=== PATIENT | female | born 1975 | race Caucasian/White ===

== ENCOUNTER 2019-10-16 16:43 | Inpatient (IN) ==
[2019-10-16] MEDS ORDERED: NS 1,000 ML IV ONE (20:05)
[2019-10-16 20:42] LABS: BASO# 0.04 X1000 (0.0-0.2); BASO% 0.6 % (0.0-0.8); EOS# 0.27 X1000 (0.0-0.7); EOS% 4.3 % (0.0-10.0); HEMATOCRIT 34.6 % (37.0-47.0); HEMOGLOBIN 11.5 g/dL (12.0-16.0); IMM GRAN# 0.02 X1000 (0.0-0.04); IMM GRAN% 0.3 % (0.0-0.5); LYMPH# 2.88 X1000 (1.2-3.4); LYMPH% 46.3 % (20.5-51.1); MCHC 33.2 g/dL (33-37); MCV 93.3 FL (81-99); MONO# 0.67 X1000 (0.11-0.59); MONO% 10.8 % (1.7-9.3); NEUT# 2.34 X1000 (1.4-6.5); NEUT% 37.7 % (42.2-75.2); PLT 287 X1000 (130-400); RBC 3.71 XMIL (4.2-5.4); RDW 20.6 % (11.5-14.5); WBC 6.22 X1000 (4.8-10.8)
[2019-10-16 20:50] LABS: INR 1.02; PROTIME 13.5 Seconds (11.0-16.0)
[2019-10-16 20:51] LABS: PTT 35.4 Seconds (22.3-41.8)
[2019-10-16 21:15] LABS: AGAP 10; ALB/GLOB RATIO 1.1; ALBUMIN 3.9 g/dL (3.5-5.0); ALKALINE PHOSPHATASE 293 U/L (32-104); AMYLASE 62 U/L (20-200); BUN 11 mg/dL (8-22); CHLORIDE 102 mmol/L (98-107); COSMO 274; CREATININE 0.5 mg/dL (0.5-0.9); ESTIMATED GFR > 60; GLUCOSE 80 mg/dL (70-104); LIPASE 44 U/L (13-60); POTASSIUM 3.8 mmol/L (3.5-5.1); SODIUM 138 mmol/L (136-145); TCO2 26 mmol/L (25-35); TOTAL BILIRUBIN 14.16 mg/dL (0.20-1.00); TOTAL PROTEIN 7.4 g/dL (6.3-8.3)
[2019-10-16 21:33] LABS: GOT 1464 U/L (10-30); GPT 1426 U/L (10-36)
[2019-10-16 21:48] LABS: URINE SOURCE CLEAN CATCH
--- NOTE | 2019-10-16 21:58 | Diag Imaging Result Doc PS360 ---
EXAM: CT ABD/PELVIS W/IV CONT ONLY - 10/16/2019 HISTORY: abd pain, RUQ, jaundice TECHNIQUE: CT abdomen/pelvis with intravenous contrast COMPARISON: None. FINDINGS: The visualized lung bases appear clear except for mild dependent atelectasis. The gallbladder is moderately distended. There are multiple calcified gallstones in the gallbladder. The gallbladder kaur appear mildly thickened. There is a small amount of pericholecystic fluid. There are no other gross pericholecystic inflammatory changes identified. There is mild periportal edema. There is no focal liver lesion identified. There are no substantial abnormalities of the spleen or adrenal glands identified. There is no pancreatic mass or inflammation identified. The bilateral kidneys enhance homogeneously. There are nonspecific small retroperitoneal and mesenteric lymph nodes. There is no evidence of bowel obstruction. The appendix is unremarkable. There is a large amount retained fecal debris in the colon suggesting constipation. There is no substantial bowel wall thickening identified. There is no free air or abscess identified. IMPRESSION: Moderately distended gallbladder. Multiple calcified gallstones in gallbladder. Mildly thickened gallbladder kaur. Small amount of pericholecystic fluid. Cholecystitis is not excluded. Mild periportal edema. This is of uncertain significance, but can be seen with hepatitis. There is no evidence of focal liver lesion. Evidence of constipation. This exam was performed using automated exposure control, adjustment of mA or kV according to patient size, and/or use of iterative reconstruction technique. Electronically signed by Josef Baeza 10/16/2019 9:56 PM
[2019-10-16 22:02] LABS: BILIRUBIN URINE SMALL (NEGATIVE); BLOOD URINE NEGATIVE (NEGATIVE); COLOR YELLOW; GLUCOSE URINE NEGATIVE (NEGATIVE); KETONE URINE NEGATIVE (NEGATIVE); LEUKOCYTES URINE NEGATIVE (NEGATIVE); NITRITE URINE NEGATIVE (NEGATIVE); PH URINE 6.5; PROTEIN URINE NEGATIVE (NEGATIVE); SP GRAVITY URINE 1.008; TURBIDITY URINE HAZY (CLEAR); UROBILINOGEN URINE 2 mg/dL (NORMAL)
[2019-10-16 22:05] LABS: URINE CASTS NONE SEEN; URINE CRYSTALS NONE SEEN; URINE SMALL ROUND CELLS NONE SEEN; URINE YEAST NONE SEEN
[2019-10-16 22:06] LABS: UR EPITHELIAL CELLS <10 /HPF (<10); URINE BACTERIA NEGATIVE /HPF; URINE RBC <10 /HPF (<10); URINE WBC <10 /HPF (<10)
[2019-10-16] MEDS ORDERED: ZOSYN 3.375 GM in NS 50 ML IV ONE (23:01)
--- NOTE | 2019-10-16 23:05 | PROVIDER DOCUMENTATION ---
This chart was entered by Nuvia Doe Scribe, acting as scribe for Abhi Real MD. HPI-Abdominal Pain/GI Problem - General Chief Complaint: Abdominal Pain Stated Complaint: "JAUNDICE" Time Seen by Provider: 10/16/19 19:59 Source: patient, family Allergies/Adverse Reactions: Patient Allergies Allergy/AdvReac Type Severity Reaction Status Date / Time codeine AdvReac NAUSEA Verified 09/16/19 15:27 Home Medications: Home Medication List Medication Instructions Recorded Confirmed Last Taken Type Levothyroxine [Synthroid] 200 microgm PO DAILY 09/16/19 10/16/19 Unknown History - History of Present Illness-ABD Nature of Presenting Problems: 43 yowf presents to the ed with c/o jaundice and abd pain in RUQ. pt sts was seen on 09/16/2019 and was dx with gallstones. pt did not follow up after last visit to ed. Abdominal Pain Onset Location: reports: RUQ Pain Radiation: reports: back Quality of Pain: reports: aching Severity in ED: reports: moderate Onset/Duration: reports: other (09/16/2019) Timing: reports: still present, intermittent, getting worse Activities at Onset: reports: light activity Modifying Factors: improves with: nothing. worse with: palpation Associated Symptoms: reports: back/neck pain, genitourinary problems (dark urine), loss of appetite, other (jaundice). denies: chest pain, dizziness, fever/chills, shortness of breath, vomiting Last BM: last night Dark Stools Present?: reports: none noticed Rectal Bleeding: reports: none # of Diarrhea Episodes: 0 Rectal Pain: reports: none # of Vomiting Episodes: 0 Emesis Description: reports: none Bruising or Bleeding Gums?: No Similar Symptoms Previously?: Yes (dx gallstones) Recently seen or treated by another doctor?: Yes (seen in ed 09/16/2019) Review of Systems - Adult - REVIEW OF SYSTEMS - ADULT Constitutional: denies: chills, fever Eyes: reports: no symptoms reported Ears, Nose, Mouth & Throat: reports: no symptoms reported Cardiovascular: denies: chest pain, edema, palpitations Respiratory: denies: shortness of breath, wheezing Gastrointestinal: reports: see HPI, abdominal pain, poor appetite. denies: diarrhea, nausea, vomiting Genitourinary: reports: see HPI, other (dark urine) Musculoskeletal: reports: see HPI, back pain Integumentary: reports: no symptoms reported Neurological: reports: no symptoms reported Psychiatric: reports: no symptoms reported Endocrine: reports: see HPI, change in skin pigment Hematologic/Lymphatic: reports: no symptoms reported Allergic/Immunologic: reports: no symptoms reported All Other Systems: Reviewed and Negative Past History - Adult - PAST MEDICAL HISTORY-ADULT Review of Records: reports: Old Records Reviewed, Nursing Assessment Review, Medications Reviewed, Social history reviewed & non-contributory. Major Childhood Illnesses: reports: denies history Cardiovascular: reports: denies history Respiratory: reports: denies history Gastrointestinal: reports: denies history Obstetrical/Gynecological: reports: denies history Genitourinary: reports: denies history Musculoskeletal: reports: denies history Neurological: reports: denies history Psychiatric: reports: denies history Endocrine/Immune: reports: thyroid disorder Other Conditions: reports: denies history - PRIOR SURGERIES/PROCEDURES Surgical/Procedure History: reports: hysterectomy - IMMUNIZATION STATUS Childhood Immunizations: See Nurse Assessment Flu Vaccine: See Nurse Assessment - FAMILY HISTORY Family History: reviewed, not pertinent - SOCIAL HISTORY Smoking: cigarettes, greater than 1 pack/day Provider spent 3-5 mins advising pt. on dangers of tobacco.: Discussed manners to quit use, and f/u contacts for add'l counseling. Substance Use: denies Alcohol Use Frequency: never Living Situation: family Physical Exam-General - PHYSICAL EXAM-ADULT Initial Vital Signs Reviewed: Yes - CONSTITUTIONAL General Appearance: appears well, alert, mild distress - EYES Eyes: PERRL/EOMI, scleral icterus - HEAD, EARS, NOSE, MOUTH & THROAT HENMT: moist mucous membranes - NECK Neck: non-tender, full range of motion, supple - RESPIRATORY Respiratory: lungs clear, normal breath sounds - CARDIOVASCULAR Cardiovascular: normal peripheral pulses, regular rate, rhythm - CHEST (BREASTS) Chest/Breast: deferred - GASTROINTESTINAL (ABDOMEN) Abdominal Exam: normal bowel sounds, soft, tenderness (RUQ) - GENITOURINARY Female Genitalia/Pelvic Exam: deferred Rectal Exam: deferred Hemoccult Exam: deferred - MUSCULOSKELETAL Back Exam: no CVA tenderness, no vertebral tenderness Extremity: normal range of motion, non-tender, normal gait, normal capillary refill - SKIN Integumentary: normal turgor, warm/dry, jaundice - NEUROLOGIC Neurologic: grossly normal - PSYCHIATRIC Psych/Mental Status: normal mood/affect, normal thought content, normal thought process, oriented x 3 Progress - PLAN OF CARE/RESULTS Progress/Plan/Lab Results: Vital Signs - 8 hr 10/16/19 16:58 Temperature 98.0 F Pulse Rate 81 Respiratory Rate 18 Blood Pressure 119/76 O2 Sat by Pulse Oximetry 99 Orders Category Date Time Status Saline Loc DIRECTED Care 10/16/19 17:23 Active NPO Diet 10/16/19 17:23 Active AMMONIA [CHEM] Stat Lab 10/16/19 17:24 Uncollected AMYLASE [CHEM] Stat Lab 10/16/19 17:23 Uncollected CBC WITH ELECTRONIC DIFF [HEME] Stat Lab 10/16/19 17:23 Uncollected COMPREHENSIVE METABOLIC PANEL [CHEM] Stat Lab 10/16/19 17:23 Uncollected LIPASE [CHEM] Stat Lab 10/16/19 17:23 Uncollected PROTIME WITH INR [COAG] Stat Lab 10/16/19 17:24 Uncollected PTT [COAG] Stat Lab 10/16/19 17:24 Uncollected URINALYSIS W/POSS RFLX CULT [URINALYSIS] Stat Lab 10/16/19 17:23 Uncollected Result Diagrams: 10/16/19 20:10 10/16/19 20:10 - CT/MRI 1 CT Study: Abdomen, Pelvis Impression: See EMR Report (EXAM: CT ABD/PELVIS W/IV CONT ONLY - 10/16/2019 HISTORY: abd pain, RUQ, jaundice TECHNIQUE: CT abdomen/pelvis with intravenous contrast COMPARISON: None. FINDINGS: The visualized lung bases appear clear except for mild dependent atelectasis. The gallbladder is moderately distended. There are multiple calcified gallstones in the gallbladder. The gallbladder kaur appear mildly thickened. There is a small amount of pericholecystic fluid. There are no other gross pericholecystic inflammatory changes identified. There is mild periportal edema. There is no focal liver lesion identified. There are no substantial abnormalities of the spleen or adrenal glands identified. There is no pancreatic mass or inflammation identified. The bilateral kidneys enhance homogeneously. There are nonspecific small retroperitoneal and mesenteric lymph nodes. There is no evidence of bowel obstruction. The appendix is unremarkable. There is a large amount retained fecal debris in the colon suggesting constipation. There is no substantial bowel wall thickening identified. There is no free air or abscess identified. IMPRESSION: Moderately distended gallbladder. Multiple calcified gallstones in gallbladder. Mildly thickened gallbladder kaur. Small amount of pericholecystic fluid. Cholecystitis is not excluded. Mild periportal edema. This is of uncertain significance, but can be seen with hepatitis. There is no evidence of focal liver lesion. Evidence of constipation. This exam was performed using automated exposure control, adjustment of mA or kV according to patient size, and/or use of iterative reconstruction technique. Electronically signed by Josef Baeza 10/16/2019 9:56 PM 10/16/192155 Interpreting Physician: Josef Baeza MD Dictated Date/Time: 10/16/192147 cc: Abhi Real MD; None,PCP) - CONSULTS/PCP/HOSPITALIST Notification #1 *Consult/PCP/Hospitalist*: dr morris sx Time Discussed: 22:54 (start abx) Reason/Comments: will do sx #2 Consult: hospitalist dr xiogn Time Discussed: 23:00 Consult Disposition: Will see in ED, Admit Departure - Departure Date of Disposition Decision: 10/16/19 Time of Disposition Decision: 23:02 DIAGNOSIS: Jaundice, Cholelithiasis, Cholecystitis, Elevated LFTs Disposition: ADMITTED INPATIENT 09 Certified Medical Emergency: Emergent Condition: Fair Referrals and Follow-Ups: None,PCP [Primary Care Provider] - Discharge Education: Steps to Quit Smoking, [id number] - Critical Care Note This patient required my direct & personal management of CC.: No Attestation - Physician/ JAMES Attestation Patient care was provided by Advanced Practice Provider:: No The physician spent face to face time with patient:: Yes Advanced Practice Provider documentation review:: Supervising physician onsite and consulted in the evaluation and care of this patient. The physician did have a face to face encounter with the patient. This chart was documented by the indicated scribe, (Nuvia Doe Scribe) and accurately reflects the services I performed and decisions made by me, Abhi Real MD, as attested by the provider's signature.
[2019-10-17] MEDS ORDERED: ZOFRAN IV PRN (04:10)
[2019-10-17] MEDS ORDERED: MORPHINE IV PRN (04:17)
[2019-10-17] MEDS ORDERED: TYLENOL PR PRN (04:17)
[2019-10-17 04:56] LABS: BASO# 0.03 X1000 (0.0-0.2); BASO% 0.6 % (0.0-0.8); EOS# 0.24 X1000 (0.0-0.7); EOS% 5.1 % (0.0-10.0); HEMATOCRIT 31.6 % (37.0-47.0); HEMOGLOBIN 10.6 g/dL (12.0-16.0); IMM GRAN# 0.02 X1000 (0.0-0.04); IMM GRAN% 0.4 % (0.0-0.5); LYMPH# 1.93 X1000 (1.2-3.4); LYMPH% 41.2 % (20.5-51.1); MCH 31.4 PG (27-31); MCHC 33.5 g/dL (33-37); MCV 93.5 FL (81-99); MONO# 0.49 X1000 (0.11-0.59); MONO% 10.4 % (1.7-9.3); MPV 9.8 FL (7.4-10.4); NEUT# 1.98 X1000 (1.4-6.5); NEUT% 42.3 % (42.2-75.2); PLT 272 X1000 (130-400); RBC 3.38 XMIL (4.2-5.4); WBC 4.69 X1000 (4.8-10.8)
[2019-10-17 05:29] LABS: AGAP 8; ALB/GLOB RATIO 0.9; ALBUMIN 3.1 g/dL (3.5-5.0); ALKALINE PHOSPHATASE 262 U/L (32-104); BUN 8 mg/dL (8-22); CALCIUM 8.2 mg/dL (8.8-10.2); CHLORIDE 106 mmol/L (98-107); COSMO 273; CREATININE 0.5 mg/dL (0.5-0.9); ESTIMATED GFR > 60; GLUCOSE 107 mg/dL (70-104); GOT 1256 U/L (10-30); GPT 1166 U/L (10-36); POTASSIUM 3.7 mmol/L (3.5-5.1); SODIUM 137 mmol/L (136-145); TCO2 23 mmol/L (25-35); TOTAL BILIRUBIN 12.31 mg/dL (0.20-1.00); TOTAL PROTEIN 6.6 g/dL (6.3-8.3)
[2019-10-17] MEDS: PROTONIX IV SCH (05:41)
[2019-10-17] MEDS: ZOSYN 3.375 GM in NS 50 ML IV SCH ×5 (05:41→22:18)
[2019-10-17] MEDS: NS 1,000 ML IV SCH ×2 (05:42→17:31)
[2019-10-17] MEDS: NICODERM PATCH TD PRN (06:57)
--- NOTE | 2019-10-17 07:27 | GENERAL SURGERY CONSULTATION ---
DATE: 10/17/2019 HISTORY OF PRESENT ILLNESS: Ms. Bains comes in today with a 2-week history of right upper quadrant pain and jaundice. Her LFTs are elevated. Her CT scan shows multiple calcified gallstones within the gallbladder. She is not certain that she has had any fever at home. PAST MEDICAL HISTORY: Pertinent for a hysterectomy. MEDICATIONS AT HOME: Synthroid 200 mcg daily. This is for a history of Bebeto's disease. ALLERGIES: Codeine. SOCIAL HISTORY: She is engaged to be . She does smoke a pack per day. She denies current illicit drug use. She says she has not used illicit drugs for many years. She denies alcohol use. FAMILY HISTORY: Noncontributory. REVIEW OF SYSTEMS: Negative in all 10 subsystems except as noted above in the history of present illness. She specifically denies any known fever, nausea or vomiting. Does report some epigastric pain, however. PHYSICAL EXAMINATION: Vital Signs: She is afebrile, heart rate 87, blood pressure 129/67. HEENT: She is obviously jaundiced. Neck: No cervical adenopathy. Lungs: Bilateral breath sounds are present. Heart: Regular rate and rhythm. Abdomen: Soft. She is mildly tender to the right upper quadrant. Extremities: Pedal pulses are present. No peripheral edema. Neurologic: She is awake, alert, oriented. LABORATORY DATA: White count is normal at 4700. Total bilirubin is 12.3, AST 1256, ALT 1166, alkaline phosphatase 262. There is a bilirubin in her urine. Urine is nitrite negative. ASSESSMENT: Cholelithiasis with jaundice, possible choledocholithiasis. PLAN: The plan will be also to check a hepatitis profile. We will ultimately perform a cholecystectomy on her while she is hospitalized, and I have discussed that with her. cc: Malik Cox MD
--- NOTE | 2019-10-17 11:06 | HISTORY AND PHYSICAL ---
PRIMARY CARE PROVIDER: The patient does not have a primary care provider. CHIEF COMPLAINT: Abdominal pain. HISTORY OF PRESENT ILLNESS: Ms. Bains is a 43-year-old female who states that for the past month that she has had intermittent right upper quadrant abdominal pain, as well as a baseline slight jaundice noted, though states this has gotten worse and better at times over the past month. She states since about 2 weeks ago it has progressively gotten worse. She reports some right upper quadrant pain that is intermittent though has been getting worse recently. She reports it is achy in nature. She reports some decreased appetite, though denies any nausea, vomiting, or diarrhea. She denies any fever, body aches, or chills. She has reported that she has been having some dark urine, though she denies any headache, dizziness, chest pain, shortness of breath or cough. She denies any dysuria or urine urinary frequency. She denies any pain, numbness, tingling or swelling in extremities. The patient states that she was seen in the emergency department on 09/16/2019 and was diagnosed with gallstones, though was not instructed to follow up with anybody. On evaluation in the ER, the patient was noted to have jaundice present. Liver function tests were quite elevated. I did perform a CT of the abdomen and pelvis with IV contrast only which did show a moderately distended gallbladder with multiple gallstones in the gallbladder noted. There was a small amount of pericholecystic fluid. Cholecystitis could not be excluded. Given this, the patient will be admitted for further treatment and evaluation. REVIEW OF SYSTEMS: A 14-point review of systems was conducted with the patient. All were negative except for pertinent positives mentioned in the above HPI. PAST MEDICAL HISTORY: Hypothyroidism. The patient reports a history of Bebeto's. She does take Synthroid daily. PAST SURGICAL HISTORY: Hysterectomy. SOCIAL HISTORY: The patient is a current 3-[id number]-[id number]-day smoker. She has done so since she was 15 years old. She denied any alcohol or illicit drug use. FAMILY HISTORY: Positive for her father having a history of hypertension, sleep apnea, atrial fibrillation. Her mother had a history of heart disease, as well as Bebeto's and hypertension. ALLERGIES: The patient has allergies to codeine. HOME MEDICATION: Synthroid 200 mcg p.o. daily. DIAGNOSTIC DATA: White blood cell count is 6220, hemoglobin 11.5, hematocrit 34.6, platelet count is 287,000. PT 13.5, INR 1.02, PTT is 35.4. Sodium 138, potassium 3.8, chloride 102, serum bicarbonate is 26, BUN 11, creatinine 0.5 with a GFR greater than 60, glucose 274, calcium 9, total bilirubin is 14.16, AST 1464, ALT 1426, alkaline phosphatase 293. Amylase 62, lipase 44. Urinalysis was obtained via clean catch and was positive for small amount of bilirubin. It was negative for protein, glucose, ketones, blood, nitrites, leukocytes, white blood cells, or bacteria. CT abdomen and pelvis with IV contrast only did show moderately distended gallbladder. Multiple calcified gallstones in the gallbladder. Mildly thickened gallbladder kaur. Small amount of pericholecystic fluid. Cholecystitis could not be excluded. There was also mild periportal edema. This is of uncertain significance, but can be seen in hepatitis. There is no evidence of focal liver lesion. There is also evidence of constipation noted. PHYSICAL EXAMINATION: VITAL SIGNS: Temperature 97.7 degrees, heart rate 83, respirations 16, blood pressure is 118/65 with a MAP of 75, oxygen saturation is 95% on room air. GENERAL: Ms. Bains is a pleasant 43-year-old female. She was resting in the ER stretcher. She was in no acute distress. She was awake, alert, and answered questions appropriately. HEENT: Head is atraumatic, normocephalic. Pupils are equal, round, reactive to light, were 3 mm bilaterally and brisk. The patient does have jaundice noted bilateral sclera. Oral mucosa is moist. Oropharynx is clear. NECK: Supple, trachea midline. CARDIOVASCULAR: Patient has S1 and S2 present. No murmurs, gallops, or rubs appreciated with a regular rate and rhythm. PULMONARY: The patient has symmetrical chest expansion bilaterally. Lung sounds clear to auscultation in bilateral full arriola. ABDOMEN: Soft, nondistended. The patient was tender upon palpation in her right upper quadrant and epigastric area. Bowel sounds were present in all 4 quadrants and were normoactive. EXTREMITIES: No cyanosis or edema noted. Pulse, motor, and sensory were intact in all extremities. Radial and pedal pulses were 2+ bilaterally. INTEGUMENTARY: The patient's skin color does have jaundice noted, though it is dry and intact. NEUROLOGICAL: The patient is alert oriented to person, place, time, and situation. There were no focal neurological deficits noted. She is able move all extremities. ASSESSMENT: 1. Cholelithiasis. 2. Possible cholecystitis. 3. Transaminitis. 4. Bebeto's thyroid disorder. PLAN: The patient has been placed on the surgical floor with telemetry. She will have vital signs every 8 hours. We will do strict intake and output. She will be n.p.o. at this time until she is evaluated by surgery. We have placed orders for a hepatitis profile and an abdominal ultrasound. We will provide IV hydration with normal saline at 100 mL/hour. We have placed antibiotics. We have placed IV antibiotic coverage with Zosyn 3.375 grams IV every 6 hours. We will repeat a CBC and CMP in the morning. We have provided p.r.n. IV pain medication and antiemetics. We will continue her Synthroid. We have placed orders for a TSH to be drawn in the morning as well. Deep venous thrombosis prophylaxis will be provided with sequential compression devices. Further orders and recommendations pending hospital course, diagnostic studies, and physician evaluation. Dictated by FABI Valle for Gentry Moore MD cc: Gentry Moore MD
--- NOTE | 2019-10-17 11:37 | Diag Imaging Result Doc PS360 ---
EXAM: US ABDOMEN-COMPLETE 10/17/2019 HISTORY: Cholecystitis,Cholelithiasis,Transaminitis TECHNIQUE: Abdominal ultrasound COMMENT: The visualized portions of the aorta and inferior vena cava are within normal limits. The head and body of the pancreas are within normal limits detail is obscured. The liver is unremarkable. There is antegrade flow in the portal vein. There are multiple stones dependently in the gallbladder. The gallbladder wall is thickened and there is no evidence of para cholecystic fluid. The common bile duct is distended to almost 9 mm. The spleen is not enlarged. The kidneys are without evidence of hydronephrosis or mass. There is a tiny amount of free fluid in Morison's pouch. The patient was evidently somewhat sedated with pain medication and the presence or absence of a Godinez sign cannot be determined. IMPRESSION: Cholelithiasis and minimal ascites. The possibility of cholecystitis and choledocholithiasis cannot be excluded. Electronically signed by Damian Givens 10/17/2019 11:34 AM
[2019-10-17 14:07] LABS: HEPATITIS PROFILE ACUTE SEE COMMENTS
[2019-10-17] MEDS: SYNTHROID PO SCH (16:18)
--- NOTE | 2019-10-17 17:58 | PROGRESS NOTE ---
DATE: 10/17/2019 Ms. Bains was admitted early this morning. She did not have a primary care physician who was having abdominal pain and some jaundice. A 43-year-old female states that for the past month she has had intermittent right upper quadrant abdominal pain as well as baseline slight jaundice noted and gotten worse and better over times in the past month. She since about 2 weeks ago, progressively got worse. She reports she had some right upper quadrant pain, intermittent. It has been getting worse. She reports achy in nature and decreased appetite but denies any nausea, vomiting, or diarrhea. Denies any fever, body aches, chills. She had reported that she had been having some dark urine, though she denies any headache, dizziness, chest pain, shortness of breath. CT of the abdomen and pelvis with IV contrast did show a moderately distended gallbladder with multiple gallstones, small amount of pericholecystic fluid. Cholecystitis could not be excluded. So, admitted with cholelithiasis, possible cholecystitis and transaminitis. She has a history of passive Bebeto's thyroiditis and she is on thyroid supplement. REVIEW OF LABS: Her lab white count 6220, hematocrit 34, platelet count 287,000. Sodium 138, potassium 3.8, chloride 102, BUN 11, creatinine 0.5 blood sugar 80, calcium was 9.0. AST was 1164, ALT 1426, alkaline phos was 293 and total bilirubin was 4.16. She denies alcohol, but she does have a history of drug use over 20 years ago, she said. Cholelithiasis with jaundice, possible choledocholithiasis. Checking a hepatitis profile. CURRENT ORDERS: She is on Synthroid 200 mcg p.o. daily, nicotine patch 21 mg daily, normal saline 100 mL an hour, Protonix 40 mg IV q.24 hours, Zosyn 3.375 g IV q.6 h. cc: Josué Ratliff MD
[2019-10-18] MEDS: SODIUM CHLORIDE 0.9% INJ SCH (04:28)
[2019-10-18] MEDS: ZOSYN 3.375 GM in NS 50 ML IV SCH ×3 (04:28→20:18)
[2019-10-18] MEDS: PROTONIX IV SCH (04:28)
[2019-10-18] MEDS ORDERED: ZEMURON ONE (06:20)
[2019-10-18] MEDS ORDERED: ROBINUL ONE ×2 (06:20→09:18)
[2019-10-18] MEDS ORDERED: XYLOCAINE-MPF 2% ONE (06:20)
[2019-10-18] MEDS ORDERED: QUELICIN (DOSE) ONE (06:20)
[2019-10-18] MEDS ORDERED: FENTANYL ONE (06:22)
[2019-10-18] MEDS ORDERED: DIPRIVAN 1% ONE (06:22)
[2019-10-18] MEDS ORDERED: VERSED ONE (06:22)
[2019-10-18 08:08] LABS: ALB/GLOB RATIO 0.9; TOTAL BILIRUBIN 14.33 mg/dL (0.20-1.00); TOTAL PROTEIN 6.2 g/dL (6.3-8.3)
--- NOTE | 2019-10-18 08:08 | EKG Report ---
Test Performed on : 10/18/2019 07:46:58 AM Test Reason : CP Blood Pressure : / mmHG Vent. Rate : 082 BPM Atrial Rate : 082 BPM P-R Int : 142 ms QRS Dur : 074 ms QT Int : 396 ms P-R-T Axes : 053 008 029 degrees QTc Int : 462 ms Sinus rhythm. with premature atrial complexes. Otherwise normal ECG No previous ECGs available Confirmed by Donald Estrada MD ([id number]) on 10/20/2019 12:34:34 PM
[2019-10-18] MEDS ORDERED: MARCAINE 0.25% PF/EPI 1:200,000 ONE (08:52)
[2019-10-18] MEDS ORDERED: LR 1,000 ML ONE (08:52)
[2019-10-18] MEDS ORDERED: SODIUM CHLORIDE 0.9% ONE (08:52)
[2019-10-18] MEDS ORDERED: NEOSTIGMINE ONE ×2 (09:09→09:21)
[2019-10-18] MEDS ORDERED: ZOFRAN ONE (09:10)
[2019-10-18] MEDS ORDERED: DECADRON ONE (09:10)
--- NOTE | 2019-10-18 09:53 | Diag Imaging Result Doc PS360 ---
OPERATIVE CHOLANGIOGRAM - 10/18/2019 INDICATION: GALLBLADDER DX TECHNIQUE: The exam was performed by the patient's surgeon. Total fluoroscopy time was 12 seconds. Three images were obtained. COMPARISON: Ultrasound from 10/17/2019 FINDINGS: Contrast was infused into the cystic duct. This outlines a normal common bile duct. There is good passage of contrast into the duodenum. No strictures or filling defects. IMPRESSION: No complication. Electronically signed by Pop Novak 10/18/2019 9:51 AM
--- NOTE | 2019-10-18 10:44 | OPERATIVE NOTE ---
PROCEDURE DATE: 10/18/2019 PROCEDURE: Laparoscopic cholecystectomy with operative cholangiogram. SURGEON: Malik Cox MD WOLF HUNTER: Kevyn Adams MD, 3rd year surgery resident, [facility]. PREOPERATIVE DIAGNOSIS: Acute and chronic cholecystitis, possible choledocholithiasis. POSTOPERATIVE DIAGNOSIS: Acute and chronic calculous cholecystitis. FINDINGS: The cholangiogram revealed a normal size common duct free flow in the duodenum. No intraluminal filling defects were seen. The gallbladder wall was yellow and swollen. DESCRIPTION OF PROCEDURE: Satisfactory general endotracheal anesthesia was achieved. The abdomen was prepped and draped in a sterile fashion. We anesthetized the skin below the umbilicus in a curvilinear fashion where the old scar was. We incised the skin and carried our incision down to the fascia. We scored the fascia vertically and used an Optiview trocar number 11 to enter the abdominal cavity. Under direct visualization, we used a 5 trocar midclavicular line, 5 trocar near the anterior axillary line, and the 11 mm trocar in the midepigastrium. We placed the camera in the epigastric trocar site, took some adhesions down from the back of the anterior abdominal wall so that there would free visualization from the umbilicus up to the epigastrium. We then replaced the camera in the umbilical trocar site. We placed the patient in the appropriate position with the head up and turned to the left. The gallbladder wall was thickened. We grasped the fundus, reflected it cephalad. We then began dissection of the omental adhesions off the infundibulum, dissected the areolar tissue off the infundibulum, and then dissected the triangle of Calot. We obtained a critical view. The cystic artery was clipped proximally x2, distally x1, and divided. We then clipped the cystic duct near the junction of the gallbladder. We incised the cystic duct and introduced a taut catheter and shot a cholangiogram. The findings above were noted. We removed the cholangiogram catheter. We then clipped the cystic duct on the opposite side of the cystic ductotomy x2 and then transected it. We used a cautery spatula to then dissect the gallbladder away from the liver. After complete separation of the gallbladder from the liver, we changed videolaparoscope to the mid epigastric trocar site. We introduced the Endo Catch, placed the gallbladder within the bag and delivered out of the abdominal cavity. We had to enlarge the fascial incision at the umbilicus enough to deliver the gallbladder because of its enlarged nature. We looked back. Hemostasis was satisfactory. We aspirated what fluid had collected. We then decompressed the abdominal cavity and removed our trocars. We closed the fascia at the umbilicus with 2-0 Polysorb fascial stitches x3. We then closed the fascia at the epigastrium with a 2-0 Polysorb fascial stitch x1. The skin was closed at each incision with 4-0 Polysorb subcuticular stitches. Sterile OpSites were applied. She tolerated it well and was sent to the recovery room in satisfactory condition. cc: Malik Cox MD
[2019-10-18] MEDS: DILAUDID ONE ×3 (10:54→20:18)
[2019-10-18] MEDS ORDERED: NORCO-10 PO PRN ×2 (11:38→20:07)
[2019-10-18] MEDS: SYNTHROID PO SCH (13:34)
[2019-10-18] MEDS: NICODERM PATCH TD PRN (13:34)
--- NOTE | 2019-10-18 13:54 | PROGRESS NOTE ---
DATE: 10/18/2019 SUBJECTIVE: Ms. Bains is feeling a little better. She is scheduled for surgery this morning. OBJECTIVE: Vital Signs: Temperature 97.2 degrees. Remains afebrile. Pulse 95, respirations 17, blood pressure 110/53. HEENT: Pupils are equal and round. Lungs: Clear in all lung arriola. Cardiovascular: Regular rhythm and rate without murmur or S3. Abdomen: Soft. Skin: Warm and dry. Urine output was 2800 mL. ASSESSMENT AND PLAN: 1. Laparoscopic cholecystectomy for cholecystitis, possible choledocholithiasis. 2. Elevated transaminases. The hepatitis profile, hepatitis A antibody was reactive, but everything else., Hepatitis B surface and core, hepatitis C were nonreactive. REVIEW OF CURRENT ORDERS: 1. Synthroid 200 mcg daily. 2. Nicotine patch 21 mg q.24 hours. 3. Protonix 40 mg IV q.24 hours. 4. Zosyn 3.375 g IV q.6 hours. We will check liver enzymes again in the morning and check CBC. cc: Josué Ratliff MD
[2019-10-18] MEDS ORDERED: MORPHINE IV PRN (20:04)
[2019-10-18] MEDS: PERIDEX MT SCH (20:18)
[2019-10-19] MEDS: ZOSYN 3.375 GM in NS 50 ML IV SCH ×2 (03:21→08:45)
[2019-10-19] MEDS: SODIUM CHLORIDE 0.9% INJ SCH (04:30)
[2019-10-19] MEDS: PROTONIX IV SCH (04:31)
[2019-10-19] MEDS: NS 1,000 ML IV SCH (06:06)
[2019-10-19] MEDS: PERIDEX MT SCH (08:45)
[2019-10-19] MEDS: SYNTHROID PO SCH (08:45)
[2019-10-19] MEDS ORDERED: NORCO-5 PO PRN (08:52)
[2019-10-19] MEDS ORDERED: MILK OF MAGNESIA PO SCH (09:00)
[2019-10-19] MEDS: NICODERM PATCH TD PRN (09:20)
[2019-10-19 09:45] LABS: BASO# 0.01 X1000 (0.0-0.2); BASO% 0.1 % (0.0-0.8); EOS# 0.07 X1000 (0.0-0.7); EOS% 0.7 % (0.0-10.0); HEMATOCRIT 32.7 % (37.0-47.0); HEMOGLOBIN 10.7 g/dL (12.0-16.0); IMM GRAN# 0.02 X1000 (0.0-0.04); IMM GRAN% 0.2 % (0.0-0.5); LYMPH# 1.89 X1000 (1.2-3.4); LYMPH% 19.2 % (20.5-51.1); MCH 31.2 PG (27-31); MCHC 32.7 g/dL (33-37); MCV 95.3 FL (81-99); MONO# 0.65 X1000 (0.11-0.59); MONO% 6.6 % (1.7-9.3); MPV 10.3 FL (7.4-10.4); NEUT# 7.21 X1000 (1.4-6.5); NEUT% 73.2 % (42.2-75.2); PLT 343 X1000 (130-400); RBC 3.43 XMIL (4.2-5.4); RDW 21.5 % (11.5-14.5); WBC 9.85 X1000 (4.8-10.8)
--- NOTE | 2019-10-19 09:49 | PROGRESS NOTE ---
DATE: 10/19/2019 SUBJECTIVE: She feels much better today. She underwent laparoscopic cholecystectomy yesterday. We have not got blood work back. I want to see what her transaminases are doing, but her color looks better to me. She says she is hungry, so I will advance her to a soft diet. Bowels have not moved yet. Afebrile OBJECTIVE: Vital Signs: Temperature 97.7 degrees, pulse 93, respirations 17, blood pressure 97/49. Eyes: Pupils are equal and round. Lungs: Clear in all lung arriola. Cardiovascular exam: Regular rhythm and rate without murmur or S3. : Urine output is 1200 mL. ASSESSMENT AND PLAN: Laparoscopic cholecystectomy for cholecystitis and cholelithiasis. She did have elevated transaminases. Her hepatitis A was reactive. REVIEWING HER LABS: Transaminases were high, so I would like to check them again this morning. We will advance her to a soft diet. There is the possibility she can go home today. Her bilirubin was 14.16 when she came in, and yesterday it was 14.3, so I would like to see what her numbers look like today. Alkaline phos was 293; yesterday was down to 243. Transaminases have changed a little bit, but I do want to follow her enzymes. cc: Josué Ratliff MD
[2019-10-19 10:11] LABS: AGAP 10; ALBUMIN 2.9 g/dL (3.5-5.0); ALKALINE PHOSPHATASE 226 U/L (32-104); BUN 5 mg/dL (8-22); CALCIUM 8.1 mg/dL (8.8-10.2); CHLORIDE 106 mmol/L (98-107); COSMO 275; CREATININE 0.6 mg/dL (0.5-0.9); ESTIMATED GFR > 60; GLUCOSE 104 mg/dL (70-104); POTASSIUM 3.9 mmol/L (3.5-5.1); SODIUM 139 mmol/L (136-145); TCO2 23 mmol/L (25-35); TOTAL BILIRUBIN 12.84 mg/dL (0.20-1.00); TOTAL PROTEIN 5.7 g/dL (6.3-8.3)
[2019-10-19 10:14] LABS: GOT 870 U/L (10-30)
[2019-10-19 10:15] LABS: GPT 930 U/L (10-36)
--- NOTE | 2019-10-19 12:18 | GENERAL SURGERY PROGRESS NOTE ---
DATE: 10/19/2019 SUBJECTIVE: The patient feels better overall. No severe pain. No nausea or vomiting. She is tolerating a diet. OBJECTIVE: She is afebrile. Vital signs are stable.General: She is awake, alert, oriented x3, in no acute distress. Gastrointestinal: Soft, appropriately tender. Incisional dressing is clean and dry. She does have bowel sounds. LABORATORY: Total bilirubin 12.8, AST 870, ALT 930, alkaline phosphatase 226. ASSESSMENT: 43-year-old female status post laparoscopic cholecystectomy. Her bile duct was clear. Her liver function tests remain high, but they are slowly decreasing. Of note, she was hepatitis A antibody positive. PLAN: I think she is recovering well from that. She appears to have had hepatitis as well. From our standpoint, she can be discharged home. Instructions were given. She can follow up with Dr. Cox in 1 to 2 weeks. cc: Balbir Ochoa MD
[2019-10-19 12:27] VITALS: BP 102/53
--- NOTE | 2019-10-19 15:29 | DISCHARGE SUMMARY ---
ADMISSION DATE: 10/17/2019 DISCHARGE DATE: 10/19/2019 This is a 43-year-old presented with epigastric abdominal pain, right upper quadrant pain, and some jaundice. 43-year-old states that for the past month she has had intermittent right upper quadrant abdominal pain as well as baseline slight jaundice, noticed that she got worse, better at times, and then last month waxed and waned, but 2 weeks ago, progressively got worse. Reports her right upper quadrant pain that is intermittent and getting worse, achy in nature. Some decreased appetite. She denies any nausea, vomiting, and diarrhea. Denies any fever, body aches, chills. She reported that she has been having some dark urine. Denies any headache, dizziness, chest pain, shortness of breath, cough. Denies any dysuria or urinary urine frequency. Denies any pain, numbness, tingling, or swelling in the extremities. No urticaria. Came to the emergency department on 09/16/2019, diagnosed with gallstones and instructed to follow up and I do not think she has had any follow-up with anybody. On evaluation in the emergency room on 10/17/2019, noted to have jaundice present. Liver functions were quite elevated. I did perform a CT of the abdomen and pelvis with IV contrast only and did show moderately distended gallbladder with multiple gallstones in the gallbladder. There was small amount of pericholecystic fluid and cholecystitis could not be excluded. Patient was admitted and sent over from [place] to here. She did have elevation of her liver enzymes and hepatitis profile reveals she was hepatitis A reactive but negative for hepatitis B and C. She underwent surgery on 10/18/[address] Pee Cox. Cholangiogram revealed normal-size common bile duct with free flow in the duodenum. No intraluminal filling defects were seen. Gallbladder wall was yellow and swollen and her liver enzymes were coming down as well as her bilirubin. She felt good, was tolerating diet. Her total bilirubin was 14.16 and direct bilirubin was the majority of that. AST was 1464, ALT was 1426. On the day of discharge, bilirubin was 12.84, AST was 870, ALT was 930. Alkaline phosphatase came down from 293 to 226. Plan to discharge her home and will put her on her Synthroid. We will let her have some [place] p.r.n. pain and wanted to follow up with her primary care physician in a couple weeks. Follow up with Dr. Cox in a couple weeks. cc: Josué Ratliff MD
[2019-10-19] MEDS ORDERED: PREVNAR 13 IM ONE (16:24)
== END 2019-10-19 17:01 | disposition home or self-care (01) | DRG 419 ==
LOC: ED 16:43 → SUATTDRO 10-17 00:06 → EDIPHOLD 10-17 00:06 → 4N 10-17 13:15
PROVIDERS: ATTEND Emergency Medicine

== ENCOUNTER 2019-11-08 10:23 | Inpatient (IN) ==
[2019-11-08 11:01] LABS: BASO# 0.09 X1000 (0.0-0.2); BASO% 1.2 % (0.0-0.8); EOS# 0.19 X1000 (0.0-0.7); EOS% 2.5 % (0.0-10.0); HEMATOCRIT 37.6 % (37.0-47.0); HEMOGLOBIN 13.1 g/dL (12.0-16.0); IMM GRAN# 0.04 X1000 (0.0-0.04); IMM GRAN% 0.5 % (0.0-0.5); LYMPH# 1.67 X1000 (1.2-3.4); LYMPH% 22.4 % (20.5-51.1); MCH 32.8 PG (27-31); MCHC 34.8 g/dL (33-37); MONO% 14.7 % (1.7-9.3); MPV 9.3 FL (7.4-10.4); NEUT# 4.38 X1000 (1.4-6.5); NEUT% 58.7 % (42.2-75.2); PLT 453 X1000 (130-400); RDW 20.3 % (11.5-14.5); WBC 7.47 X1000 (4.8-10.8)
[2019-11-08 11:14] LABS: PTT 64.8 Seconds (22.3-41.8)
[2019-11-08 11:41] LABS: AGAP 13; ALB/GLOB RATIO 0.8; ALBUMIN 2.8 g/dL (3.5-5.0); ALKALINE PHOSPHATASE 122 U/L (32-104); BUN 3 mg/dL (8-22); CALCIUM 8.5 mg/dL (8.8-10.2); CHLORIDE 97 mmol/L (98-107); COSMO 274; CREATININE 0.8 mg/dL (0.5-0.9); ESTIMATED GFR > 60; GLUCOSE 171 mg/dL (70-104); GOT 1346 U/L (10-30); GPT 824 U/L (10-36); POTASSIUM 3.2 mmol/L (3.5-5.1); SODIUM 137 mmol/L (136-145); TCO2 27 mmol/L (25-35); TOTAL BILIRUBIN 29.24 mg/dL (0.20-1.00); TOTAL PROTEIN 6.3 g/dL (6.3-8.3)
[2019-11-08 12:03] LABS: INR 5.21; PROTIME 49.8 Seconds (11.0-16.0)
--- NOTE | 2019-11-08 12:16 | PROVIDER DOCUMENTATION ---
This chart was entered by Bernardo Diaz Scribe, acting as scribe for Jimmy Howell MD. HPI-Abdominal Pain/GI Problem - General Stated Complaint: POST OP COMPLAINT Time Seen by Provider: 11/08/19 10:25 Source: patient Allergies/Adverse Reactions: Patient Allergies Allergy/AdvReac Type Severity Reaction Status Date / Time codeine AdvReac NAUSEA Verified 11/08/19 10:51 Home Medications: Home Medication List Medication Instructions Recorded Confirmed Last Taken Type Levothyroxine [Synthroid] 200 microgm PO DAILY 09/16/19 11/08/19 11/07/19 History - History of Present Illness-ABD Nature of Presenting Problems: Pt is a 43 y/o comes to the ED c/o of constipation for 2 weeks. She reports getting her gallbladder removed 17 days ago. She reports taking go litely and mag citrate with no sucess. She does say she did get some lower gi results after 2 enemas but says the upper abdomen continues to swell. Abdominal Pain Onset Location: reports: generalized abdomen Pain Radiation: reports: no radiation Quality of Pain: reports: aching Severity in ED: reports: moderate, severe Onset/Duration: reports: other (2 weeks) Timing: reports: getting worse Activities at Onset: reports: none, recent emotional stress Modifying Factors: improves with: nothing Associated Symptoms: reports: constipation. denies: fever/chills, nausea, shortness of breath, vomiting Review of Systems - Adult - REVIEW OF SYSTEMS - ADULT Constitutional: denies: chills, fever Eyes: reports: no symptoms reported Ears, Nose, Mouth & Throat: reports: no symptoms reported Cardiovascular: reports: no symptoms reported Respiratory: reports: no symptoms reported Gastrointestinal: reports: abdominal pain, constipation. denies: diarrhea, nausea, rectal bleeding, vomiting Genitourinary: denies: dysuria, frequency Musculoskeletal: denies: back pain Integumentary: reports: no symptoms reported Neurological: reports: no symptoms reported Psychiatric: reports: no symptoms reported Endocrine: reports: no symptoms reported Hematologic/Lymphatic: reports: no symptoms reported Allergic/Immunologic: reports: no symptoms reported All Other Systems: Reviewed and Negative Past History - Adult - PAST MEDICAL HISTORY-ADULT Review of Records: reports: Old Records Reviewed, Nursing Assessment Review, Medications Reviewed - PRIOR SURGERIES/PROCEDURES Surgical/Procedure History: reports: cholecystectomy - IMMUNIZATION STATUS Childhood Immunizations: See Nurse Assessment Flu Vaccine: See Nurse Assessment - FAMILY HISTORY Family History: reviewed, not pertinent - SOCIAL HISTORY Smoking: cigarettes, less than 1 pack/day Living Situation: family Physical Exam-General - PHYSICAL EXAM-ADULT Initial Vital Signs Reviewed: Yes - CONSTITUTIONAL General Appearance: alert, no apparent distress. negative: appears well (Jaundice in appearance) - EYES Eyes: PERRL/EOMI. negative: pink conjunctivae (yellow) - HEAD, EARS, NOSE, MOUTH & THROAT HENMT: moist mucous membranes, normal ENT inspection, pharynx normal - NECK Neck: non-tender, full range of motion, supple, normal inspection - RESPIRATORY Respiratory: lungs clear, normal breath sounds, no pleuratic chest pain, no respiratory distress, no accessory muscle use - CARDIOVASCULAR Cardiovascular: normal peripheral pulses, tachycardia - GASTROINTESTINAL (ABDOMEN) Abdominal Exam: distended, tenderness, other (well healing surgical scars) - MUSCULOSKELETAL Back Exam: normal inspection, no CVA tenderness, no vertebral tenderness Extremity: normal range of motion, non-tender, normal gait - SKIN Integumentary: normal turgor, warm/dry, jaundice - NEUROLOGIC Neurologic: grossly normal, no motor/sensory deficits - PSYCHIATRIC Psych/Mental Status: normal mood/affect, normal thought content, normal thought process, oriented x 3 Progress - PLAN OF CARE/RESULTS Result Diagrams: 11/08/19 10:44 11/08/19 10:44 Departure - Departure Date of Disposition Decision: 11/08/19 Time of Disposition Decision: 12:15 DIAGNOSIS: Acute hepatic failure Disposition: ADMITTED INPATIENT 09 Certified Medical Emergency: Emergent Condition: Serious Referrals and Follow-Ups: Josef Vicente MD [Primary Care Provider] - Discharge Education: Steps to Quit Smoking, [id number] - Critical Care Note This patient required my direct & personal management of CC.: No Attestation - Physician/ JAMES Attestation Patient care was provided by Advanced Practice Provider:: No The physician spent face to face time with patient:: Yes Advanced Practice Provider documentation review:: Supervising physician onsite and consulted in the evaluation and care of this patient. The physician did have a face to face encounter with the patient. This chart was documented by the filomena scribe, (Bernardo Diaz Scribe) and accurately reflects the services I performed and decisions made by me, Jimmy Howell MD, as attested by the provider's signature.
[2019-11-08 12:21] LABS: URINE SOURCE CLEAN CATCH
[2019-11-08 12:26] LABS: BLOOD URINE SMALL (NEGATIVE); COLOR ORANGE; GLUCOSE URINE TRACE mg/dL (NEGATIVE); KETONE URINE NEGATIVE (NEGATIVE); LEUKOCYTES URINE NEGATIVE (NEGATIVE); NITRITE URINE POSITIVE (NEGATIVE); PROTEIN URINE 30 mg/dL (NEGATIVE); SP GRAVITY URINE 1.016; TURBIDITY URINE TURBID (CLEAR); UROBILINOGEN URINE NORMAL (NORMAL)
[2019-11-08 12:38] LABS: UR AMPHETAMINES QUAL NONE DETECTED (NONE DETECT); UR BARBITUATES QUAL NONE DETECTED (NONE DETECT); UR BENZODIAZEPIN QUAL NONE DETECTED (NONE DETECT); UR CANNABINOIDS QUAL NONE DETECTED (NONE DETECT); UR COCAINE QUAL NONE DETECTED (NONE DETECT); UR METHADONE QUAL NONE DETECTED (NONE DETECT); UR OPIATES QUAL NONE DETECTED (NONE DETECT); UR OXYCODONE QUAL NONE DETECTED (NONE DETECT); UR PCP QUAL NONE DETECTED (NONE DETECT)
[2019-11-08 12:40] LABS: UR EPITHELIAL CELLS <10 /HPF (<10); URINE BACTERIA 4+ /HPF; URINE WBC <10 /HPF (<10)
[2019-11-08 12:41] LABS: URINE CRYSTALS NONE SEEN; URINE YEAST NONE SEEN
[2019-11-08 12:52] LABS: BILIRUBIN URINE LARGE (NEGATIVE)
[2019-11-08] MEDS ORDERED: VITAMIN K PO ONE (13:12)
[2019-11-08] MEDS ORDERED: ROCEPHIN 1 GM in NS 50 ML IV SCH (13:45)
[2019-11-08] MEDS ORDERED: NS 1,000 ML IV SCH (14:45)
[2019-11-08] MEDS ORDERED: KLOR-CON PO ONE (15:17)
--- NOTE | 2019-11-08 15:35 | HISTORY AND PHYSICAL ---
PRIMARY CARE PROVIDER: Dr. Josef Vicente. STEEL DIVISION SUPERVISOR: Dr. Lloyd Hendrix. CHIEF COMPLAINT: Abdominal distention sent from Dr. Hendrix's office. HISTORY OF PRESENT ILLNESS: Ms. Bains is a 43-year-old, female with a past medical history of hepatitis A. Had a laparoscopic cholecystectomy with operative cholangiogram with Dr. Malik Cox on 10/18/2019. She reports she had a follow-up appointment with Dr. Cox last Monday, Dr. Hendrix yesterday. Called the office today. She was told to come to the ED secondary to constipation. Other past medical history of Bebeto's. She has taking GoLYTELY, Mag citrate as well as 2 enemas that she did get results with. However, she complains of upper abdominal swelling and tenderness. She continues to have elevated T-bilirubin, as well as liver function tests. They are better. Her AST, ALT, and alkaline phosphatase are all better since her last discharge. Her T-bilirubin is about the same. She was positive for urinary tract infection with an elevated INR of 5. We will give her p.o. vitamin K. Consult Dr. Hendrix, and get a CT of her abdomen, and start IV antibiotics for her urinary tract infection. PAST MEDICAL HISTORY: 1. Hepatitis A. 2. Bebeto's. PAST SURGICAL HISTORY: Hysterectomy, recent laparoscopic cholecystectomy with operative cholangiogram. SOCIAL HISTORY: One pack per day smoker; has done so since the age of 15. No alcohol or illicit drug use. Toxicology screen has been negative, both admissions. FAMILY HISTORY: Father with hypertension, sleep apnea, atrial fibrillation. Mother with heart disease, as well as Bebeto's and hypertension. ALLERGIES: Codeine. HOME MEDICATIONS: Synthroid 200 mcg p.o. daily. REVIEW OF SYSTEMS: Twelve-point review of systems completely negative, except for those mentioned in HPI. There has been no headache, fever, sore throat, dry cough, shortness of breath, chest pain. Positive for constipation with relief with laxatives and enema, abdominal distention. No recent travel or sick contacts. PHYSICAL EXAMINATION: VITAL SIGNS: Temperature is 98.1 degrees, heart rate 94, respirations 16, blood pressure 118/50, O2 is 100% on room air. GENERAL: Ms. Bains is a 43-year-old, female, who is lying on the stretcher in no acute distress. HEENT: Atraumatic, normocephalic. WESLY. Jaundiced sclera. NECK: Neck is supple. Trachea midline. CARDIOVASCULAR: S1, S2 appreciated. No murmurs, gallops, rubs noted. RESPIRATORY: Lung sounds clear bilaterally. No work of breathing. ABDOMEN: Soft, tender, especially in the right upper quadrant. Positive bowel sounds. She is somewhat distended. However, she is still quite soft upon palpation. EXTREMITIES: No clubbing, no cyanosis. Bilateral pedal pulses are palpable. SKIN: Jaundiced, dry and intact. NEUROLOGIC: No focal deficits noted. ASSESSMENT AND PLAN: 1. Hepatitis A. The patient's laboratory values are decreasing since recent admission. 2. Recent cholelithiasis with cholecystitis status post laparoscopic cholecystectomy with operative cholangiogram with Dr. Cox. 3. Abdominal pain with distention. We will check a CT of the abdomen and pelvis. 4. Elevated INR. We will give her an oral dose of vitamin K. Recheck in the morning and daily. 5. Urinary tract infection. We will start intravenous Rocephin. Await urine culture. 6. Hypokalemia. Replenish as needed. Further recommendation to follow physician evaluation, laboratory and diagnostic data with her CT of her abdomen. Dictated by FABI Hannon for Candelaria Joyner MD cc: MD Lloyd Landrum MD Malcolm R. Hendricks, MD
[2019-11-08] MEDS ORDERED: ULTRAM PO PRN (17:59)
--- NOTE | 2019-11-08 18:50 | Diag Imaging Result Doc PS360 ---
CT ABD/PELVIS W/PO AND IV CON - 11/08/2019 INDICATION: DISTENSITON COMPARISON: 10/16/2019 FINDINGS: The lung bases are clear and the heart size is normal. There is a moderately large amount of ascites. There are cholecystectomy clips. Otherwise all abdominal organs are normal. Uterus is absent. Urinary bladder and rectum are normal. No bowel obstruction or inflammation. Bones are intact and well mineralized. IMPRESSION: Relatively large amount of ascites. In the setting of a recent cholecystectomy this raises concern for bile leak. A nuclear medicine HIDA scan may be helpful. This exam was performed using automated exposure control, adjustment of mA or kV according to patient size, and/or use of iterative reconstruction technique Electronically signed by Pop Novak 11/08/2019 6:47 PM
[2019-11-08] MEDS ORDERED: SODIUM CHLORIDE 0.9% INJ PRN (18:57)
[2019-11-08] MEDS ORDERED: SODIUM CHLORIDE 0.9% INJ SCH (19:15)
[2019-11-08] MEDS ORDERED: COLACE PO SCH (21:00)
[2019-11-08] MEDS ORDERED: MIRALAX PO SCH (21:00)
[2019-11-08 21:21] LABS: AGAP 17; ALBUMIN 2.8 g/dL (3.5-5.0); ALKALINE PHOSPHATASE 112 U/L (32-104); BUN 4 mg/dL (8-22); CALCIUM 8.6 mg/dL (8.8-10.2); CHLORIDE 96 mmol/L (98-107); COSMO 269; CREATININE 0.9 mg/dL (0.5-0.9); ESTIMATED GFR > 60; GLUCOSE 128 mg/dL (70-104); GOT 1150 U/L (10-30); GPT 662 U/L (10-36); POTASSIUM 2.9 mmol/L (3.5-5.1); SODIUM 135 mmol/L (136-145); TCO2 22 mmol/L (25-35); TOTAL PROTEIN 5.5 g/dL (6.3-8.3)
[2019-11-08 21:22] LABS: INR 6.72; PROTIME 61.1 Seconds (11.0-16.0)
[2019-11-08] MEDS ORDERED: TORADOL IV PRN (23:28)
[2019-11-09] MEDS: NS 1,000 ML IV SCH ×3 (00:11→20:57)
[2019-11-09] MEDS: ZOSYN 3.375 GM in NS 50 ML IV SCH ×4 (00:12→20:56)
[2019-11-09] MEDS: DULCOLAX PR SCH ×3 (00:17→21:57)
[2019-11-09 06:38] LABS: BASO# 0.05 X1000 (0.0-0.2); BASO% 0.7 % (0.0-0.8); EOS% 4.1 % (0.0-10.0); HEMATOCRIT 33.1 % (37.0-47.0); HEMOGLOBIN 11.3 g/dL (12.0-16.0); IMM GRAN# 0.02 X1000 (0.0-0.04); IMM GRAN% 0.3 % (0.0-0.5); LYMPH# 1.58 X1000 (1.2-3.4); LYMPH% 21.5 % (20.5-51.1); MCHC 34.1 g/dL (33-37); MCV 93.8 FL (81-99); MONO# 1.03 X1000 (0.11-0.59); MPV 9.2 FL (7.4-10.4); NEUT# 4.38 X1000 (1.4-6.5); NEUT% 59.4 % (42.2-75.2); PLT 379 X1000 (130-400); RBC 3.53 XMIL (4.2-5.4); RDW 20.3 % (11.5-14.5); WBC 7.36 X1000 (4.8-10.8)
[2019-11-09 06:52] LABS: PROTIME 65.3 Seconds (11.0-16.0)
[2019-11-09 06:53] LABS: INR 7.3
[2019-11-09] MEDS ORDERED: NS 500 ML IV ONE (06:55)
[2019-11-09] MEDS ORDERED: VITAMIN K 10 MG in NS 50 ML IV ONE (06:57)
[2019-11-09] MEDS ORDERED: POTASSIUM CHLORIDE 60 MEQ in NS 500 ML IV ONE (06:57)
[2019-11-09] MEDS ORDERED: PRILOSEC PO SCH (07:00)
[2019-11-09] MEDS ORDERED: SYNTHROID PO SCH (07:00)
[2019-11-09 07:17] LABS: AGAP 11; ALBUMIN 2.5 g/dL (3.5-5.0); ALKALINE PHOSPHATASE 101 U/L (32-104); BUN 4 mg/dL (8-22); CALCIUM 8.7 mg/dL (8.8-10.2); CHLORIDE 102 mmol/L (98-107); COSMO 271; CREATININE 0.7 mg/dL (0.5-0.9); ESTIMATED GFR > 60; GLUCOSE 71 mg/dL (70-104); GPT 597 U/L (10-36); POTASSIUM 3.2 mmol/L (3.5-5.1); SODIUM 138 mmol/L (136-145); TCO2 25 mmol/L (25-35); TOTAL BILIRUBIN 25.29 mg/dL (0.20-1.00); TOTAL PROTEIN 5.1 g/dL (6.3-8.3)
[2019-11-09 07:25] LABS: GOT 1037 U/L (10-30)
[2019-11-09] MEDS: PROTONIX IV SCH (08:44)
[2019-11-09] MEDS: ZOFRAN IV PRN ×2 (08:45→16:08)
[2019-11-09] MEDS: SYNTHROID IV SCH (08:45)
--- NOTE | 2019-11-09 09:03 | Diag Imaging Result Doc PS360 ---
US ABDOMEN-COMPLETE - 11/09/2019 INDICATION: Elevated Liver function/recent cholecystectomy COMPARISON: 11/08/2019, 10/17/2019 FINDINGS: There is moderate ascites. The gallbladder is absent. The liver, pancreas, spleen, and both kidneys are normal. Spleen size is 12.5 x 4.9 cm., Bile duct measures 7 mm. Aorta, IVC, and main portal vein are patent. IMPRESSION: Ascites. Electronically signed by Pop Novak 11/09/2019 9:00 AM
--- NOTE | 2019-11-09 10:47 | GENERAL SURGERY PROGRESS NOTE ---
DATE: 11/09/2019 SUBJECTIVE: Ms. Bains is known to me from her hospitalization in October, at which time she was admitted on October 16. At that time, she had a bilirubin of 12, AST 1256, ALT 1166, alkaline phosphatase 262. She did have gallstones on imaging with minimal ascites, and the possibility of cholecystitis and choledocholithiasis could not be excluded. We took her to the operating room and performed a cholecystectomy and operative cholangiogram and there were no stones in her common duct. Her common duct was not dilated. Subsequent to her operation, she has developed increasing hyperbilirubinemia. She did have hepatitis A antibodies and it was felt she had hepatitis. She was referred by Dr. Hendrix. She was admitted currently because of constipation. CT scan showed ascites and then the question of bile leak was suggested by the radiologist. Ultrasound continues show a normal size common duct. She reports that she does not feel well. Besides her hepatitis A, she has a history of Bebeto's. She has had a previous hysterectomy as well as the laparoscopic cholecystectomy. SOCIAL HISTORY: She is engaged, has a fiancee. She smokes a pack per day. Has no recent history of alcohol or illicit drug use. She does have some remote history of drug use. FAMILY HISTORY: Pertinent for hypertension, heart disease. MEDICATIONS: Include Synthroid 200 mcg daily. ALLERGIES: She is allergic to codeine. REVIEW OF SYSTEMS: Primarily pertinent for the constipation and general malaise. She does have some trouble with her appetite currently, all other subsystems are negative. PHYSICAL EXAMINATION: Vital Signs: She is afebrile, heart rate 104, blood pressure is 99/47. She is obviously jaundiced. Abdomen: Somewhat distended. Her wounds are healing satisfactorily. LABORATORY DATA: White count 7400, hemoglobin 11.3, hematocrit 33. Her protime is 65, INR is 7.3. Her total bilirubin is 25, AST 1037, ALT 597, alkaline phosphatase 101. PLAN: We will go ahead and order a HIDA scan as recommended by Dr. Novak. I spoke with him and he feels like we can proceed with that imaging. cc: Malik Cox MD
[2019-11-09] MEDS ORDERED: DILAUDID IV PRN (15:44)
--- NOTE | 2019-11-09 15:53 | Diag Imaging Result Doc PS360 ---
HIDA SCAN W/O EJECT. FRACTION - 11/09/2019 INDICATION: evaluate for bile leak TECHNIQUE: 6.1 mCi of Choletec was administered COMPARISON: None FINDINGS: There is high-grade liver failure. No evidence of leak. IMPRESSION: High-grade liver failure. The ascites is due to the liver failure and not a bile leak. Electronically signed by Pop Novak 11/09/2019 3:51 PM
--- NOTE | 2019-11-09 17:18 | GASTROENTEROLOGY CONSULTATION ---
DATE: 11/09/2019 REASON FOR CONSULTATION: Hepatitis A with ascites. HISTORY OF PRESENT ILLNESS: Ms Bains is a 43-year-old female with a history of hepatitis A and Bebeto's thyroiditis. She was complaining of abdominal pain, and constipation. The patient recently had a laparoscopic cholecystectomy with operative cholangiogram with Dr. Cox on 10/18/2019. For her constipation, she was taking GoLYTELY, Mag citrate, as well as 2 enemas that did give her some results. She did have a bowel movement the day before yesterday. The patient is complaining of upper abdominal pain. Currently, the patient's liver enzymes are elevated. Her PT and INR is 65.3 and 7.30. Abdomen and pelvis CT showed that the patient had a relatively large amount of ascites. In the setting of recent cholecystectomy, this raises concern for bile leak. Suggestion is to do nuclear medicine HIDA scan which would be helpful. Abdominal ultrasound has shown ascites. PAST MEDICAL HISTORY: Hepatitis A, Bebeto's thyroiditis. PAST SURGICAL HISTORY: Hysterectomy, recent laparoscopic cholecystectomy with operative cholangiogram. SOCIAL HISTORY: The patient is , has 1 kid. She smokes 1 pack of cigarettes per day. Denies any alcohol or illicit drug. FAMILY HISTORY: Significant for hypertension and heart disease, and her mother also has Bebeto's thyroiditis. ALLERGIES: Codeine. MEDICATIONS: Synthroid 200 mcg p.o. daily. REVIEW OF SYSTEMS: As per HPI. Otherwise, 12 point review of system is negative. PHYSICAL EXAMINATION: Vital Signs: Temperature 97.8 degrees, pulse 95, respirations 18, blood pressure 98/42, oxygen saturation 100% on room air. The patient's weight is 184 pounds, BMI is 26.4 kg/m2. General: She is alert, oriented x3, and in no acute distress. HEENT: Pale conjunctivae. Scleral icterus. Neck: Supple. Lungs: Clear to auscultation. Cardiovascular: The patient is tachycardic. Abdomen: Distended, tender in the epigastric and right area. The patient has got some surgical incisions from her laparoscopic cholecystectomy. Active bowel sounds heard in all 4 quadrants. Extremities: No clubbing, no cyanosis, no edema. Pedal pulses 2+ present bilaterally. Neurologic: Alert and oriented x3. Nonfocal. Cranial nerves 2-12 grossly intact. LABORATORY DATA: WBC was 7.36, RBC 2.53, hemoglobin 11.3, hematocrit 33.1, platelet count is 379,000. PTT is 65.3, INR is 7.30. Sodium is 138, potassium 3.2, chloride 102, carbon dioxide 25, anion gap 11, BUN 4, creatinine is 0.7, glucose is 71, calcium is 8.7, magnesium is 2.3. Total bilirubin is 25.29, AST is 1037, ALT is 597, alkaline phosphatase is 101, albumin is 2.5. Urinalysis showed protein of 30, small amount of blood, positive for nitrites, large amount of bilirubin. Toxicology report has shown salicylates greater than 3.0, acetaminophen greater than 1.2. IMPRESSION AND PLAN: 1. Abdominal pain. 2. Hepatitis A. 3. Cholecystitis s/p cholecystectomy. 4. Elevated INR. 5. Elevated liver function tests. 6. Urinary tract infection. 7. Hypokalemia. PLAN: Ms. Bains is a 43-year-old female with a history of hepatitis A and Bebeto's thyroiditis. GI has been consulted for her hepatitis A with ascites and elevated coags. We started patient on vitamin K 10 mg daily, prednisone 40 mg p.o. daily and Ursodiol 300 mg p.o. daily. The patient is receiving IV fluids normal saline at 100 mL/hour. Her potassium is low. She is receiving potassium chloride IV per PCP. The patient is also receiving a 1 time dose of vitamin K IV per PCP. We will continue her PPI's . We will continue to monitor patient's LFTs, PT and INR and follow the plan of care per PCP. This plan was discussed with Dr. Payton. Thank you for your consult. Please call us for any further questions or concerns. Dictated by FABI Mcduffie for Tyson Payton MD cc: Tyson Payton MD Patient had no previous history of underlying Liver Disease other than Hepatitis A diagnosed last month with positive IGM antibodies to Hepatitis A. She has shown significant deterioration in the last couple of weeks.Currently her MELD score is 29 and Child-Story C.([place] LED 69) She is in (impending) liver failure. Plan: We will start her on Steroids and VENKAT along with Vitamin K/Lactulose. Start the consultation with [facility] Hepatology for transfer and potential liver transplant. Will keep you updated. Thank you. Tyson Payton. DELORES
[2019-11-09] MEDS: PREDNISONE PO SCH (17:50)
[2019-11-09] MEDS: ACTIGALL PO SCH (17:51)
[2019-11-09] MEDS: VITAMIN K PO SCH (17:52)
--- NOTE | 2019-11-09 19:37 | PROGRESS NOTE ---
DATE: 11/09/2019 SUBJECTIVE: The patient is complaining of abdominal pain. She is somewhat lethargic today. OBJECTIVE: Vital Signs: Temperature 98.5 degrees, blood pressure 99/40, heart rate 101, respirations 18, O2 saturation 97% on room air. General: This is a middle-aged female lying in bed in no acute distress. Heart: S1, S2 normal. Tachycardic. Lungs: Equal air entry bilaterally. No wheezing. No rales. Abdomen: Positive bowel sounds. Soft. Diffuse tenderness. Extremities: No edema, no cyanosis. Neurologic: The patient is lethargic. She will awaken when her name is called. LABORATORY DATA: White blood cell count 7.3, hemoglobin 11, hematocrit 33, platelets 379,000. INR 7.3. Sodium 138, potassium 3.2, chloride 102, CO2 25, BUN 4, creatinine 0.7, glucose 71, total bilirubin 25, AST 1037, ALT 597, alkaline phosphatase 101. Albumin 2.5. HIDA scan: High-grade liver failure. No bile leak. ASSESSMENT AND PLAN: 1. Acute liver failure with ascites secondary to hepatitis A. The patient's liver function studies are slowly improving. Gastroenterology is following. The patient has been seen by the general surgeon. There was no bile leak present. We will continue with supportive care. 2. Coagulopathy. This is likely secondary to the liver failure from the hepatitis A. The patient will receive vitamin K and fresh frozen plasma today. We will monitor the INR closely. The patient does not having active bleeding. 3. Hepatic encephalopathy. Continue to monitor closely. 4. Status post laparoscopic cholecystectomy. Aware. 5. Urinary tract infection. The urine culture is growing gram-negative rods. Continue on Zosyn. 6. Hypothyroidism. Continue on synthroid. 7. Gastrointestinal prophylaxis. Continue on Protonix.. cc: MD DELORES Landrum
[2019-11-10] MEDS: NS 1,000 ML IV SCH ×2 (02:09→08:41)
[2019-11-10] MEDS: ZOSYN 3.375 GM in NS 50 ML IV SCH ×2 (03:27→08:37)
[2019-11-10] MEDS ORDERED: D50W SYRINGE IV ONE (04:01)
[2019-11-10 04:27] LABS: URINE SOURCE CATH
[2019-11-10 04:47] LABS: BLOOD URINE SMALL (NEGATIVE); COLOR ORANGE; GLUCOSE URINE NEGATIVE (NEGATIVE); KETONE URINE TRACE mg/dL (NEGATIVE); LEUKOCYTES URINE NEGATIVE (NEGATIVE); NITRITE URINE NEGATIVE (NEGATIVE); PROTEIN URINE TRACE mg/dL (NEGATIVE); SP GRAVITY URINE 1.027; TURBIDITY URINE TURBID (CLEAR); UROBILINOGEN URINE NORMAL (NORMAL)
[2019-11-10 04:49] LABS: UR EPITHELIAL CELLS <10 /HPF (<10); URINE BACTERIA NEGATIVE /HPF; URINE WBC <10 /HPF (<10)
[2019-11-10 05:02] LABS: BILIRUBIN URINE LARGE (NEGATIVE)
[2019-11-10 05:44] LABS: URINE YEAST PRESENT
[2019-11-10 05:45] LABS: URINE CASTS GRANULAR PRESENT; URINE CRYSTALS NONE SEEN; URINE SMALL ROUND CELLS NONE SEEN
[2019-11-10 06:52] LABS: BASO# 0.06 X1000 (0.0-0.2); BASO% 0.5 % (0.0-0.8); EOS# 0.03 X1000 (0.0-0.7); EOS% 0.3 % (0.0-10.0); HEMATOCRIT 34.8 % (37.0-47.0); HEMOGLOBIN 11.2 g/dL (12.0-16.0); IMM GRAN# 0.04 X1000 (0.0-0.04); IMM GRAN% 0.4 % (0.0-0.5); LYMPH# 1.05 X1000 (1.2-3.4); LYMPH% 9.5 % (20.5-51.1); MCH 33.6 PG (27-31); MCHC 32.2 g/dL (33-37); MCV 104.5 FL (81-99); MONO# 1.06 X1000 (0.11-0.59); MONO% 9.5 % (1.7-9.3); MPV 10.6 FL (7.4-10.4); NEUT# 8.86 X1000 (1.4-6.5); NEUT% 79.8 % (42.2-75.2); PLT 358 X1000 (130-400); RBC 3.33 XMIL (4.2-5.4); RDW 22.2 % (11.5-14.5)
[2019-11-10] MEDS: SYNTHROID IV SCH (06:52)
[2019-11-10] MEDS: PROTONIX IV SCH (06:53)
[2019-11-10 07:27] LABS: CALCIUM 9.4 mg/dL (8.8-10.2); CREATININE 1.5 mg/dL (0.5-0.9); POTASSIUM 4.6 mmol/L (3.5-5.1); TOTAL PROTEIN 5.9 g/dL (6.3-8.3)
[2019-11-10 07:30] LABS: TOTAL BILIRUBIN 28.22 mg/dL (0.20-1.00)
[2019-11-10] MEDS ORDERED: SODIUM BICARBONATE 8.4% 150 MEQ in D5W 1,000 ML IV SCH (09:00)
[2019-11-10] MEDS: VITAMIN K PO SCH (09:14)
[2019-11-10] MEDS: ACTIGALL PO SCH (09:14)
[2019-11-10] MEDS: PREDNISONE PO SCH (09:14)
[2019-11-10] MEDS ORDERED: MISC. PHARMACY COMMUNICATION SCH (09:15)
[2019-11-10 09:17] LABS: ALLEN TEST YES; BE -15.1 mmoll (-3.0-3.0); BLOOD TYPE ARTERIAL; HCO3-(ACT) 12.9 mmoll (20.0-26.0); METHB 0.8 % (0.0-1.5); O2(CT) 13.6 mL/dL (15.0-23.0); PO2(98.6) 52 mmHg (60-100); SAMPLE BLOOD; THB 11.2 g/dL (11.5-17.4)
[2019-11-10 09:22] LABS: INR 4.92; PROTIME 47.6 Seconds (11.0-16.0)
[2019-11-10 09:22] LABS: PCO2(98.6) 19 mmHg (35-45)
[2019-11-10 09:23] LABS: MODALITY ROOM AIR; O2HB 86.1 % (95.0-99.0)
[2019-11-10] MEDS ORDERED: ZYVOX 600 MG/D5W 600 MG/300 ML IVPB IV SCH (09:45)
[2019-11-10] MEDS ORDERED: MAXIPIME 1 GM in NS 50 ML IV SCH (09:45)
[2019-11-10 10:18] LABS: HEPATITIS PROFILE ACUTE SEE COMMENTS
[2019-11-10] MEDS ORDERED: VITAMIN K 10 MG in NS 50 ML IV ONE (10:30)
[2019-11-10] MEDS: DULCOLAX PR SCH (10:31)
[2019-11-10] MEDS: NON-FORMULARY BULK MED PR SCH ×2 (10:50→16:24)
--- NOTE | 2019-11-10 11:07 | Diag Imaging Result Doc PS360 ---
CT HEAD W/O CONTRAST - 11/10/2019 INDICATION: encephalopathy COMPARISON: None FINDINGS: The ventricles and sulci are normal in size and contour. No intracranial mass or hemorrhage. The skull is intact. The sinuses mastoids and middle ears are clear. IMPRESSION: Negative exam. This exam was performed using automated exposure control, adjustment of mA or kV according to patient size, and/or use of iterative reconstruction technique Electronically signed by Pop Novak 11/10/2019 11:05 AM
--- NOTE | 2019-11-10 11:16 | Diag Imaging Result Doc PS360 ---
CT THORAX W/O CONTRAST - 11/10/2019 INDICATION: pneumonia COMPARISON: 09/16/2019 FINDINGS: There is a trace right pleural effusion. There is ascites. There are some right hemidiaphragm elevation. There are mild multifocal infiltrates in the right lung base, most likely atelectasis. The left lung is grossly clear. Bones are intact. IMPRESSION: Nonspecific findings. This exam was performed using automated exposure control, adjustment of mA or kV according to patient size, and/or use of iterative reconstruction technique Electronically signed by Pop Novak 11/10/2019 11:14 AM
[2019-11-10] MEDS ORDERED: ATIVAN IV ONE (11:24)
[2019-11-10 11:43] LABS: ACETAMINOPHEN < 1.2 ug/mL (10-30); SALICYLATES < 3.00 mg/dL (3-10)
[2019-11-10] MEDS ORDERED: LEVOPHED 8 MG in D5 1/2 NS 250 ML IV SCH (12:00)
[2019-11-10 12:23] LABS: HEMOGLOBIN A1C 3.9 % (4.8-6.0)
[2019-11-10] MEDS: SOLU-CORTEF IV SCH ×2 (12:33→17:20)
[2019-11-10 12:55] LABS: URINE SOURCE CATH
[2019-11-10 13:17] LABS: UR CREAT RANDOM 158.4 mg/dL (11-20)
[2019-11-10 13:20] LABS: BLOOD URINE MODERATE (NEGATIVE); COLOR YELLOW; GLUCOSE URINE TRACE mg/dL (NEGATIVE); KETONE URINE TRACE mg/dL (NEGATIVE); LEUKOCYTES URINE SMALL (NEGATIVE); NITRITE URINE NEGATIVE (NEGATIVE); PROTEIN URINE 50 mg/dL (NEGATIVE); SP GRAVITY URINE 1.036; TURBIDITY URINE TURBID (CLEAR); UR EPITHELIAL CELLS <10 /HPF (<10); URINE BACTERIA NEGATIVE /HPF; URINE RBC TNTC /HPF (<10); URINE WBC <10 /HPF (<10); UROBILINOGEN URINE NORMAL (NORMAL)
[2019-11-10 13:21] LABS: URINE CASTS NONE SEEN; URINE YEAST NONE SEEN
[2019-11-10 13:25] LABS: URINE SMALL ROUND CELLS NONE SEEN
[2019-11-10 13:27] LABS: BILIRUBIN URINE LARGE (NEGATIVE)
--- NOTE | 2019-11-10 14:47 | GASTROENTEROLOGY PROGRESS NOTE ---
DATE: 11/10/2019 SUBJECTIVE: Ms. Bains is a 43-year-old female. The patient is currently sleepy, drowsy, and confused. She is under soft restraint x4. Unable to assess patient. OBJECTIVE: Vital Signs: Temperature 98.2 degrees, pulse is 119, respirations 23, blood pressure is 86/62, oxygen saturation is 100% on 2 L nasal cannula. The patient's weight is 184 pounds. BMI is 26.4 kg/m2. General: The patient is sleepy and drowsy, confused, unable to assess. HEENT: Pale conjunctivae, Sclera icterus, PERRL. Lungs: Wheezing heard in the anterior field. Cardiovascular: Patient is tachycardic and tachypneic Abdomen: Distended, mildly firm, surgical incision from cholecystomy. Hypoactive bowel sounds heard in all four quadrants. Extremities: No clubbing, no cyanosis, generalized edema in the lower extremities. Neuro: Patient is confused, sleepy and drowsy. LABS: WBCs 11.10, RBC to 3.33, hemoglobin 11.2, hematocrit is 34.8, platelet count is 358,000. PTT is 47.6, INR is 4.92. The patient has no new chemistries. Her plasma lactate is 9.7 today. Urinalysis has shown protein of 50, trace of ketones, moderate amount of blood, large amount of bilirubin, small amount of leukocytes. The patient's hepatitis profile has shown hepatitis B nonreactive, hepatitis B core antibody nonreactive. Hepatitis C antibody nonreactive, hepatitis A viral antibody is reactive. IMAGING: The patient's HIDA scan has shown high-grade liver failure. Ascites is due to the liver failure and not a bile leak. Her head CT has shown a negative exam. Chest CT has shown nonspecific findings. IMPRESSION AND PLAN: 1. Abdominal pain. 2. Acute hepatitis A. 3. Cholecystitis s/p cholecystectomy. 4. Acute liver failure. 5. Elevated liver function tests. 6. Elevated INR. 7. Urinary tract infection. 8. Hypokalemia. 9. Bebeto thyroiditis. PLAN: Ms. Bains is a 43-year-old female with a history of hepatitis A and Bebeto's thyroiditis. GI is following her for acute hepatitis A with ascites. We have started the patient on vitamin K 100 mg subQ daily. She is also started on steroids, Solu-Cortef, Ursodiol 300 mg twice a day. The patient is also receiving lactulose enema. The plan is to transfer the patient to [facility] for potential liver transplant. This plan was discussed with Dr. Payton. Please call us for any further questions or concerns. Dictated by FABI Mcduffie for Tyson Payton MD cc: Tyson Payton MD I have talked to Dr.Kondal Lloyd,attending natural history collections curator for [facility] gastroenterology and hepatology.He agreed with our plan and recommended transfer to [facility] for further care and kindly connected to Dr.David Macario (ICU) and arrangements were done for transfer.Patient will be transferred in critical care ambulance as she was getting shortness of breath and BP was a little lower. Hopefully she will get to [facility] and I am confident that she has much better (Good) prognosis there. Thank you. Tyson ESTRELLA
[2019-11-10 15:07] LABS: ALB/GLOB RATIO 1.1; ALBUMIN 2.9 g/dL (3.5-5.0); CALCIUM 9.3 mg/dL (8.8-10.2); CREATININE 1.9 mg/dL (0.5-0.9); POTASSIUM 3.9 mmol/L (3.5-5.1); TOTAL PROTEIN 5.5 g/dL (6.3-8.3)
[2019-11-10 15:15] LABS: TOTAL BILIRUBIN 27.35 mg/dL (0.20-1.00)
[2019-11-10] MEDS ORDERED: XOPENEX NEB INH ONE (15:22)
[2019-11-10] MEDS ORDERED: NS NEB INH SCH (15:30)
--- NOTE | 2019-11-10 15:57 | Diag Imaging Result Doc PS360 ---
CHEST-PORTABLE - 11/10/2019 INDICATION: rule out pna COMPARISON: 09/16/2019 FINDINGS: There are extensive bilateral perihilar infiltrates. Lung volumes are severely low. There is probably a small right basilar pleural effusion. Heart size remains normal. IMPRESSION: Extensive bilateral infiltrates. These are nonspecific. Small right pleural effusion. Electronically signed by Pop Novak 11/10/2019 3:55 PM
[2019-11-10 16:22] LABS: ALLEN TEST NO; BE -12.2 mmoll (-3.0-3.0); BLOOD TYPE ARTERIAL; HCO3-(ACT) 15.4 mmoll (20.0-26.0); METHB 0.7 % (0.0-1.5); O2(CT) 14.9 mL/dL (15.0-23.0); PCO2(98.6) 20 mmHg (35-45); PO2(98.6) 80 mmHg (60-100); SAMPLE BLOOD; SAO2 100.4 % (95.0-100.0); THB 10.9 g/dL (11.5-17.4); pH(98.6) 7.36 (7.35-7.45)
[2019-11-10 16:23] LABS: MODALITY CANNULA
--- NOTE | 2019-11-10 17:41 | DISCHARGE SUMMARY ---
ADMISSION DATE: 11/08/2019 DISCHARGE DATE: PRIMARY CARE PHYSICIAN: Dr. Josef Vicente. FINAL DISCHARGE DIAGNOSES: 1. Acute hypoxemic respiratory failure. 2. Fulminant hepatic failure. 3. Sepsis. 4. Pneumonia. 5. Hepatic encephalopathy. 6. Acute hepatitis A. 7. Pneumonia. 8. Coagulopathy. 9. New onset ascites. 10. Acute kidney injury. 11. Severe lactic acidosis. 12. High anion gap metabolic acidosis. 13. Urinary tract infection secondary to Escherichia coli. 14. Hypothyroidism. 15. Recent laparoscopic cholecystectomy. CONSULTATIONS: 1. GI consultation with Dr. Payton. 2. General Surgery consultation with Dr. Cox. IMAGIN. CT of the abdomen and pelvis performed on 11/08/2019, which revealed a large amount of ascites. Raises concern for bile leak. A HIDA scan may be helpful. 2. Abdominal ultrasound performed on 11/09/2019, which revealed ascites. 3. HIDA scan performed on 11/09/2019, which revealed high-grade liver failure. No evidence of bile leak. 4. Head CT performed on 11/10/2019, which revealed no acute disease. 5. CT of the chest performed on 11/10/2019, which revealed mild multifocal infiltrates in the right lung base. HOSPITAL COURSE: Ms. Bains is a 43-year-old female with a history of hypothyroidism, recent diagnosis of hepatitis A, and status post a recent laparoscopic cholecystectomy on 10/18/2019, who presented to the ER after she was told to come to the hospital by her GI physician, Dr. Hendrix. Upon arrival to the ER, the patient was complaining of not being able to have a bowel movement as well as abdominal pain and nausea. The patient had recently been admitted to the hospital from 10/17/2019 to 10/18 after being admitted with acute on chronic calculous cholecystitis. During that admission, the patient underwent a laparoscopic cholecystectomy. At that time, the patient was also diagnosed with acute hepatitis A. Upon arrival to the ER during this visit, the patient was noted to have a total bilirubin of 29, AST of 1346, and an ALT of 824 with an alkaline phosphatase of 122. The patient was also noted to be coagulopathic with an INR of 6.7. In light of these findings, the patient was admitted to the hospitalist service. A CT of the abdomen and pelvis was done that revealed a large amount of ascites which was new when compared to the CT scan done on October 15. There was mention of a possible bile leak. The patient was assessed by the surgeon, and a HIDA scan was ordered which revealed high-grade liver failure, but no evidence of a bile leak. The patient was assessed by the clinical biochemist who ordered steroid therapy and Actigall. The patient was also noted to be in hepatic encephalopathy as well with an ammonia level of 75. Over the course of the hospitalization, the patient was noted to be more lethargic. Also her synthetic liver function continued to worsen. This prompted the transfer to [facility]. The patient was noted to have an INR of 7.3 at which time she was given 2 units of FFP and vitamin K IV. A urinalysis was done on admission that revealed a urinary tract infection. The patient was started on Zosyn. Ultimately, the urine culture grew out E coli. The patient's transaminases continued to improve. However, the bilirubin continued to rise, and the patient's coagulation parameters worsened. On November 09, the patient was noted to have a decrease in urine output despite continuing with IV fluids as well an increase in the BUN and creatinine. She was noted to have a severe lactic acidosis with a lactate of 16.9. A CT of the chest was done that revealed an infiltrative process in the right base of the lung. In light of the patient's deterioration in renal and liver function, the patient was then transferred to the ICU. The patient's antibiotics were adjusted, and the patient was started on a bicarbonate drip. The patient was assessed by the clinical biochemist who contacted Dr.David Macario the MICU attending at [facility] who accepted the patient for transfer to [facility]. The patient's parents and fiancee were notified about the patient's medical condition and acceptance to [facility] for a higher level of care. The patient will be transferred via [facility] critical care transport. cc: Candelaria Joyner MD MTDD
[2019-11-10 21:02] VITALS: BP 98/45
[2019-11-11] MEDS ORDERED: VITAMIN K SUBQ SCH (09:00)
[2019-11-11] MEDS ORDERED: SOLU-CORTEF IV SCH (12:15)
== END 2019-11-10 21:00 | disposition short-term general hospital (02) | DRG 441 ==
LOC: ED 10:23 → 4N 13:58 → 2N 11-09 20:20 → ICU 11-10 10:12
PROVIDERS: ATTEND Internal Medicine